=== PATIENT | male | born 1970 | race Caucasian/White ===

== ENCOUNTER 2018-11-17 09:20 | Outpatient (CLI) | payer OTHER ==
[2018-11-17] MEDS ORDERED: EMTR1TAB16 PO (09:57)
[2018-11-17] MEDS ORDERED: DARU1TAB PO (09:57)
[2018-11-17] MEDS ORDERED: LEVO25TA4 PO (09:57)
== END 2018-11-17 23:59 | disposition home or self-care (01) ==
LOC: STAR 09:20
PROVIDERS: ATTEND Surgery
DX: Z02.9 Encounter for administrative examinations, unspecified (principal)

== ENCOUNTER 2018-11-24 08:30 | Day surgery (SDC) | payer OTHER ==
[~2018-11-24] VITALS: Ht 175.3 cm; Wt 72.2 kg
[~2018-11-24 08:30] MED LIST: BUPIVACAINE/PF-EPI 0.5% 1:200K ONE; DARU1TAB PO; EMTR1TAB16 PO; LEVO25TA4 PO
[2018-11-24] MEDS ORDERED: EPINEPHRINE 1 MG/ML, 1ML ONE (08:34)
[2018-11-24] MEDS ORDERED: BUPIVACAINE/PF 0.25% ONE (08:34)
[2018-11-24 09:08] VITALS: BP 95/60
[2018-11-24] MEDS ORDERED: LACTATED RINGERS 1,000 ML IV SCH (09:11)
[2018-11-24] MEDS ORDERED: FENTANYL PF 250 MCG/5ML ONE (10:06)
[2018-11-24] MEDS ORDERED: MIDAZOLAM 1 MG/ML, 2ML ONE (10:06)
[2018-11-24] MEDS ORDERED: PHENYLEPHRINE 10 MG/ML ONE (10:17)
[2018-11-24] MEDS ORDERED: CEFAZOLIN 1,000 MG ONE (10:17)
[2018-11-24] MEDS ORDERED: ROCURONIUM 10MG/ML,5ML ONE (10:42)
[2018-11-24] MEDS ORDERED: LIDOCAINE-MPF 2% ,5ML ONE (10:42)
[2018-11-24] MEDS ORDERED: ONDANSETRON 2MG/ML, 2ML ONE (10:42)
[2018-11-24] MEDS ORDERED: ROPIvacaine/PF 0.5%, 30 ML ONE (10:42)
[2018-11-24] MEDS ORDERED: DEXAMETHASONE 4 MG/ML, 1ML ONE (10:42)
[2018-11-24] MEDS ORDERED: PROPOFOL 10 MG/ML, 20ML ONE (10:42)
[2018-11-24] MEDS ORDERED: GLYCOPYRROLATE 0.4 MG/2 ML, 2ML ONE (11:13)
[2018-11-24] MEDS ORDERED: NEOSTIGMINE 1 MG/ML, 10ML ONE (11:13)
[2018-11-24] MEDS ORDERED: OXYcodone 5 MG/5 ML ORAL.SOL UDC ONE (12:00)
== END 2018-11-24 16:50 | disposition home or self-care (01) ==
LOC: OUT 08:30
PROVIDERS: ATTEND Surgery
DX: K40.30 Unilateral inguinal hernia, with obstruction, without gangrene, not specified as recurrent (principal); E03.9 Hypothyroidism, unspecified; F17.210 Nicotine dependence, cigarettes, uncomplicated; Z98.890 Other specified postprocedural states
CPT/HCPCS: 49507; C1781; J0171; J0690; J1100; J2370; J2405; J2704; J2710; J2795; J3490; J2250; J3010

== ENCOUNTER 2019-01-11 12:43 | Emergency (ER) | payer OTHER ==
[~2019-01-11] VITALS: Ht 175.3 cm; Wt 74.8 kg
[~2019-01-11 12:43] MED LIST changes: -BUPIVACAINE/PF-EPI 0.5% 1:200K ONE
[2019-01-11 13:17] VITALS: BP 125/87
[2019-01-11] MEDS ORDERED: SODIUM CHLORIDE FLUSH 10ML SYR IVF ONE (13:30)
[2019-01-11 13:59] LABS: BASOPHILS # (AUTO) 0.03 x10^3/uL (0-0.1); BASOPHILS % (AUTO) 1 % (0-1); EOSINOPHILS % (AUTO) 2 % (1-7); LYMPHOCYTES # (AUTO) 1.99 x10^3/uL (1-3.4); LYMPHOCYTES % (AUTO) 39 % (22-44); MD NO; MEAN CORPUSCULAR HGB CONC 34.5 g/dL (33.2-36.2); MEAN CORPUSCULAR VOLUME 95.8 fL (81-97); MEAN PLATELET VOLUME 6.5 fL (7.4-10.4); MONOCYTES # (AUTO) 0.24 x10^3/uL (0.2-0.8); MONOCYTES % (AUTO) 5 % (2-9); NEUTROPHILS # (AUTO) 2.79 x10^3/uL (1.8-6.8); NEUTROPHILS % (AUTO) 54 % (42-75); PLATELET COUNT 281 x10^3/uL (130-400); RED BLOOD COUNT 4.65 x10^6/uL (4.38-5.82); RED CELL DISTRIBUTION WIDTH 13.9 % (9.4-14.8)
[2019-01-11 14:10] LABS: ALANINE AMINOTRANSFERASE 37 U/L (12-78); ALBUMIN 4.3 g/dL (3.4-5.0); ANION GAP 4 mmol/L (5-15); CALCIUM 9.1 mg/dL (8.5-10.1); CHLORIDE 104 mmol/L (98-107); CREATININE 1.26 mg/dL (0.7-1.3)
[2019-01-11 14:13] LABS: ALKALINE PHOSPHATASE 75 U/L (45-117); BILIRUBIN,TOTAL 0.3 mg/dL (0.2-1.0); TOTAL PROTEIN 7.9 g/dL (6.4-8.2)
== END 2019-01-11 17:07 | disposition left against medical advice (07) ==
LOC: ED 17:01
DX: R10.2 Pelvic and perineal pain (principal)
CPT/HCPCS: 36415; 80053; 85025; 99283

== ENCOUNTER 2019-10-19 09:21 | Emergency (ER) | payer OTHER ==
[~2019-10-19] VITALS: Ht 175.3 cm; Wt 72.0 kg
--- NOTE | 2019-10-19 09:43 | NUR ---
pt to ed from home w/ s.o. c/o RUQ pain 07/07 x3 days. told triage he had nausea but denies it at this time. pain is not worse on palp. abd soft. last bm this morning, sts was small "soft and brown like peanut butter". sts recently having difficutly peeing "it takes 3 minutes to pee" and having bm. denies CP. sts pain makes him feel like he needs to breathe more. no vomiting, diarrhea. nsr on monitor. vss. endoscopy 5 months ago for reflux, sts was normal. sts "we're worried about his gall bladder", no hx gall bladder issues. hx HIV. call kent in reach, awaiting md. as
[2019-10-19] MEDS ORDERED: BICT1TAB PO (09:53)
[2019-10-19] MEDS ORDERED: MELO7.5T31 PO (09:54)
[2019-10-19] MEDS ORDERED: SERT100T32 PO (09:54)
[2019-10-19] MEDS ORDERED: LEVO137T3 PO (09:54)
--- NOTE | 2019-10-19 09:54 | NUR ---
jerome in room for eval. plan labs/ua/xr. as
--- NOTE | 2019-10-19 10:09 | NUR ---
pt to xr w/ steady gait. pt made aware of ua need and npo status. as
[2019-10-19 10:12] LABS: BASOPHILS # (AUTO) 0.02 x10^3/uL (0-0.1); BASOPHILS % (AUTO) 1 % (0-1); EOSINOPHILS # (AUTO) 0.05 x10^3/uL (0-0.4); EOSINOPHILS % (AUTO) 2 % (1-7); LYMPHOCYTES # (AUTO) 1.22 x10^3/uL (1-3.4); LYMPHOCYTES % (AUTO) 34 % (22-44); MD NO; MEAN CORPUSCULAR HEMOGLOBIN 32.9 pg (27.5-34.5); MEAN CORPUSCULAR HGB CONC 34.2 g/dL (33.2-36.2); MEAN CORPUSCULAR VOLUME 96.2 fL (81-97); MEAN PLATELET VOLUME 7.6 fL (7.4-10.4); MONOCYTES # (AUTO) 0.29 x10^3/uL (0.2-0.8); MONOCYTES % (AUTO) 8 % (2-9); NEUTROPHILS # (AUTO) 2.05 x10^3/uL (1.8-6.8); NEUTROPHILS % (AUTO) 56 % (42-75); PLATELET COUNT 228 x10^3/uL (130-400); RED BLOOD COUNT 4.89 x10^6/uL (4.38-5.82); RED CELL DISTRIBUTION WIDTH 12.5 % (9.4-14.8)
[2019-10-19 10:23] LABS: ALANINE AMINOTRANSFERASE 30 U/L (12-78); ALBUMIN 3.9 g/dL (3.4-5.0); ANION GAP 7 mmol/L (5-15); CHLORIDE 107 mmol/L (98-107); CREATININE 1.15 mg/dL (0.7-1.3)
[2019-10-19 10:25] LABS: ALKALINE PHOSPHATASE 75 U/L (45-117); BILIRUBIN,TOTAL 0.5 mg/dL (0.2-1.0); TOTAL PROTEIN 7.4 g/dL (6.4-8.2)
--- NOTE | 2019-10-19 11:00 | NUR ---
attmept for piv failed. delegated. plan for ct. vss. as
--- NOTE | 2019-10-19 11:01 | NUR ---
xr shows ileus vs obstruction. labs wnl. as
[2019-10-19 11:04] VITALS: BP 119/77
[2019-10-19 11:19] LABS: CULTURE INDICATED? NO; MICROSCOPIC AUTO
[2019-10-19] MEDS ORDERED: OMNIPAQUE 350 MG/ML, 100ML BOTTLE ONE (11:34)
--- NOTE | 2019-10-19 11:40 | NUR ---
to and from ct. as
--- NOTE | 2019-10-19 12:01 | NUR ---
ct normal. recheck.as
--- NOTE | 2019-10-19 12:34 | NUR ---
ERMD IN ROOM FOR UPDATE
== END 2019-10-19 13:15 | disposition home or self-care (01) ==
LOC: ED 10:21
DX: G89.29 Other chronic pain (principal); R10.13 Epigastric pain; F17.200 Nicotine dependence, unspecified, uncomplicated
CPT/HCPCS: 36415; 74021; 74177; 80053; 81001; 83690; 85025; 99284; Q9967

== ENCOUNTER 2020-10-29 10:33 | Emergency (ER) | payer OTHER ==
[~2020-10-29] VITALS: Ht 175.3 cm; Wt 74.4 kg
[~2020-10-29 10:33] MED LIST changes: +BICT1TAB PO; +LEVO137T3 PO; +MELO7.5T31 PO; +SERT100T32 PO
[2020-10-29 10:46] VITALS: BP 110/83
--- NOTE | 2020-10-29 10:58 | NUR ---
PT COMES IN TODAY C/O MADDEN, COUGH, GENERAL FATIGUE X DAYS. PT STATES HE "FEELS REALLY FLUY". PT STATES HE HAS BEEN TESTED FOR COVID AND WAS TOLD HE WAS NEGATIVE. STATES HIS WAS COVID POSITIVE AND HE "HASNT FELT WELL SINCE". PT DENIES SOB, SORE THROAT. MONITORS CONNECTED. WARM BLANKETS PROVIDED. CALL LIGHT W/IN REACH
--- NOTE | 2020-10-29 12:09 | NUR ---
PT AMBULATED TO DISCHARGE. PT ENCOURAGED TO FOLLOWUP DISCUSSED. PT EDUCATED TO RETURN TO THE ED WITH WORSENING SYMPTOMS
== END 2020-10-29 12:10 | disposition home or self-care (01) ==
LOC: ED 11:58
DX: J06.9 Acute upper respiratory infection, unspecified (principal); Z20.822 Contact with and (suspected) exposure to COVID-19; J00 Acute nasopharyngitis [common cold]; F17.200 Nicotine dependence, unspecified, uncomplicated
CPT/HCPCS: 87635; 99283

== ENCOUNTER 2020-12-18 15:59 | Emergency (ER) | payer OTHER ==
[~2020-12-18] VITALS: Ht 175.3 cm; Wt 75.3 kg
[2020-12-18] MEDS ORDERED: DIAZEPAM 5 MG TABLET PO ONE (17:30)
[2020-12-18] MEDS ORDERED: KETOROLAC 30 MG/1 ML IM ONE (17:30)
[2020-12-18] MEDS ORDERED: DIAZEPAM 5 MG TABLET ONE (18:09)
[2020-12-18] MEDS ORDERED: KETOROLAC 60 MG/2 ML ONE (18:10)
[2020-12-18 18:16] VITALS: BP 133/73
--- NOTE | 2020-12-18 18:20 | NUR ---
TASK RN: PT MEDICATED PER EMAR. PT DECLINING TO STAY FOR MEDICATION REASSESSMENT R/T RIDE HERE. PT VERBALIZED UNDERSTANDING OF DC INSTRUCTIONS. AMBULATORY W/ A STEADY GAIT. RESP EVEN AND UNLABORED, NADN. ARMAS.
== END 2020-12-18 18:26 | disposition home or self-care (01) ==
LOC: ED 18:15
DX: S39.012A Strain of muscle, fascia and tendon of lower back, initial encounter (principal); M62.830 Muscle spasm of back; X58.XXXA Exposure to other specified factors, initial encounter; Y93.89 Activity, other specified; Y92.89 Other specified places as the place of occurrence of the external cause; Y99.8 Other external cause status
CPT/HCPCS: 96372; 99283; J1885; J7512

== ENCOUNTER 2021-03-06 16:40 | Emergency (ER) | payer OTHER ==
[~2021-03-06] VITALS: Ht 175.3 cm; Wt 72.3 kg
[2021-03-06 17:01] VITALS: BP 116/69
--- NOTE | 2021-03-06 17:02 | NUR ---
NAX1
== END 2021-03-06 18:20 | disposition left against medical advice (07) ==
LOC: ED 16:50
DX: M54.2 Cervicalgia (principal); Z53.21 Procedure and treatment not carried out due to patient leaving prior to being seen by health care provider

== ENCOUNTER 2021-03-07 05:54 | Emergency (ER) | payer OTHER ==
[~2021-03-07] VITALS: Ht 175.3 cm; Wt 72.4 kg
[2021-03-07 05:58] VITALS: BP 106/73
--- NOTE | 2021-03-07 06:08 | NUR ---
PT PRESENTS TO ER COMPLAINING OF NECK PAIN, PT HAS A HISTORY OF NECK PROBLEMS, PT STATED THIS TIME AROUND NECK PAIN STARTED/GOT WORSE 10 DAYS AGO, PT CAME YESTERDAY BUT ER WAS BUSY SO PT CAME BACK TODAY, PT MOVES AROUND APPROPRIATELY, PT MOVES NECK APPROPRIATELY, THIS RN DID NOT NOTICE ANY HESITATION WHEN IT CAME TO MOVING AROUND FROM PT
== END 2021-03-07 06:25 | disposition home or self-care (01) ==
LOC: ED 06:00
DX: M54.12 Radiculopathy, cervical region (principal); R51.9 Headache, unspecified; Z87.891 Personal history of nicotine dependence; Z21 Asymptomatic human immunodeficiency virus [HIV] infection status
CPT/HCPCS: 99283